=== PATIENT | female | born 1940 | race Caucasian/White ===

== ENCOUNTER 2020-03-20 12:42 | Emergency (ER) | payer OTHER ==
[~2020-03-20] VITALS: Ht 149.9 cm; Wt 55.8 kg
[2020-03-20 12:52] VITALS: BP_SYST 146
--- NOTE | 2020-03-20 12:58 | NUR ---
Patient to ER bed 06 to gown for evaluation. Side rails up.
--- NOTE | 2020-03-20 13:00 | NUR ---
Patient arrived in the ED c/o right flank pain for the last 3 days. Denied any chest pain or shortness of breath. Denied any fevers, chills, nausea or vomiting. Patient is alert and oriented x4, respirations even and unlabored, speaking in full sentences, and ambulating with a steady gait. VSS, pain level 7/10. Informed of the approximate wait time. Instructed to notify ED staff for any changes in condition or worsening of symptoms while waiting to be seen by an ED provider. Patient verbalized understanding.
--- NOTE | 2020-03-20 13:02 | NUR ---
ER Dr. Lisa at bedside examining patient.
--- NOTE | 2020-03-20 13:12 | NUR ---
# 18 gauge angiocath placed to RAC. Use of asceptic technique. Opsite placed over site. Blood return noted. Blood for lab drawn from site. Flushed with 10 cc of normal saline. No evidence of infiltration noted. Patient tolerated well.
--- NOTE | 2020-03-20 13:20 | NUR ---
Administered Toradol IVP, Rocephin IVPB as ordered by Dr. Lisa. Patient tolerated the medications well. See eMAR for details.
[2020-03-20 13:21] LABS: BILIRUBIN,URINE NEGATIVE (NEGATIVE); CLARITY/URINE CLEAR (CLEAR); COLOR,URINE YELLOW (YELLOW); GLUCOSE,URINE NEGATIVE (NEGATIVE); KETONES,URINE NEGATIVE (NEGATIVE); LEUKOCYTE ESTERASE ,URINE NEGATIVE (NEGATIVE); NITRITE, URINE NEGATIVE (NEGATIVE); PH,URINE 6.5 (5.0-8.0); PROTEIN URINE NEGATIVE (NEGATIVE); UROBILINOGEN,URINE 0.2 (0.2-1.0)
[2020-03-20 13:24] LABS: BLOOD, URINE TRACE (NEGATIVE)
[2020-03-20] MEDS: cefTRIAXone 1 GM IVPB PREMIX 50 ML IV ONE (13:33)
[2020-03-20] MEDS: NACL 0.9% 1,000 ML IV ONE (13:34)
[2020-03-20] MEDS: KETOROLAC TROMETHAMINE 30 MG VIAL IVP ONE (13:35)
[2020-03-20 13:36] LABS: BACTERIA,URINE None Seen /HPF (None Seen); RBC,URINE 0-3 /HPF (0-3); WBC,URINE NONE SEEN /HPF (0-3); YEAST,URINE None Seen /HPF (None Seen)
[2020-03-20 14:51] VITALS: BP_SYST 126
--- NOTE | 2020-03-20 14:52 | NUR ---
Patient given written and verbal discharge instructions and verbalizes understanding. ER MD discussed with patient the results and treatment provided. Patient in stable condition. ID arm band removed. IV catheter removed intact and dressing applied, no active bleeding. Rx of Pyridium and Macrobid given. Patient educated on pain management and to follow up with PMD. Pain Scale 0/10. Opportunity for questions provided and answered. Medication side effect fact sheet provided.
== END 2020-03-20 14:52 | disposition home or self-care (01) ==
LOC: SED 12:42
DX: N39.0 Urinary tract infection, site not specified (principal)
CPT/HCPCS: 36415; 81000; 87040; 96365; 96375; 99284; J0696; J1885

== ENCOUNTER 2020-03-22 06:04 | Emergency (ER) | payer OTHER ==
[~2020-03-22] VITALS: Ht 149.9 cm; Wt 54.4 kg
[2020-03-22 06:10] VITALS: BP_SYST 116
[2020-03-22] MEDS ORDERED: NACL 0.9% 1,000 ML IV ONE (06:23)
[2020-03-22 06:54] LABS: BASOPHILS # (AUTO) 0.1 K/uL (0.0-0.2); BASOPHILS % (AUTO) 0.4 % (0.0-2.0); EOSINOPHILS # (AUTO) 0.8 K/uL (0.0-0.4); EOSINOPHILS % (AUTO) 6.5 % (0.0-4.0); HEMATOCRIT 39.8 % (36-48); HEMOGLOBIN 13.3 g/dL (12.0-16.0); LYMPHOCYTES # (AUTO) 0.6 K/uL (1.0-5.5); LYMPHOCYTES % (AUTO) 4.7 % (20.5-51.5); MEAN CORPUSCULAR HEMOGLOBIN 32 pg (27-31); MEAN CORPUSCULAR HGB CONC 34 % (32-36); MEAN CORPUSCULAR VOLUME 96 fL (79.0-98.0); MONOCYTES # (AUTO) 0.6 K/uL (0.0-1.0); MONOCYTES % (AUTO) 5.2 % (1.7-9.3); NEUTROPHILS # (AUTO) 10.4 K/uL (1.8-7.7); NEUTROPHILS % (AUTO) 83.2 % (40.0-70.0); PLATELET COUNT (AUTO) 320 K/uL (130-430); RED BLOOD CELL COUNT(AUTO) 4.13 MIL/uL (4.2-6.2); RED CELL DISTRIBUTION WIDTH 13.1 % (9.0-15.0); WHITE BLOOD COUNT (AUTO) 12.4 K/uL (4.8-10.8)
[2020-03-22 07:08] LABS: CALCIUM 9.3 mg/dL (8.4-11.0); CHLORIDE 98 mmol/L (98-107); CREATININE 1.17 mg/dL (0.55-1.30); GLUCOSE 103 mg/dL (70-99); POTASSIUM 3.7 mmol/L (3.5-5.1); UREA NITROGEN, BLOOD 11 mg/dL (8-21)
[2020-03-22 07:14] LABS: ALANINE AMINOTRANSFERASE 17 U/L (12-78); AMYLASE 82 U/L (0-100); ASPARTATE AMINOTRANSFERASE 17 U/L (10-37); LIPASE 69 U/L (73-393); TOTAL BILIRUBIN 0.6 mg/dL (0.0-1.0)
[2020-03-22 07:18] LABS: PROTHROMBIN TIME 9.7 SECS (9.5-12.5)
[2020-03-22 07:23] LABS: ANION GAP 14 (5-15); SODIUM SERUM 137 mmol/L (136-145)
[2020-03-22] MEDS ORDERED: MORPHINE 4 MG/ML INJ. SYRINGE IVP ONE (08:45)
[2020-03-22 08:52] LABS: BILIRUBIN,URINE NEGATIVE (NEGATIVE); CLARITY/URINE CLEAR (CLEAR); COLOR,URINE YELLOW (YELLOW); GLUCOSE,URINE NEGATIVE (NEGATIVE); KETONES,URINE TRACE (NEGATIVE); LEUKOCYTE ESTERASE ,URINE NEGATIVE (NEGATIVE); NITRITE, URINE POSITIVE (NEGATIVE); PROTEIN URINE NEGATIVE (NEGATIVE); UROBILINOGEN,URINE 0.2 (0.2-1.0)
[2020-03-22 09:03] LABS: BLOOD, URINE TRACE (NEGATIVE)
[2020-03-22 09:15] LABS: BACTERIA,URINE FEW /HPF (None Seen); MUCUS,URINE 1+ /LPF (None Seen); RBC,URINE 0-3 /HPF (0-3); WBC,URINE 0-3 /HPF (0-3)
[2020-03-22] MEDS ORDERED: cefTRIAXone 1 GM IVPB PREMIX 50 ML IV ONE (09:30)
[2020-03-22] MEDS ORDERED: LACTULOSE 20 GM/30 ML UDC PO ONE (10:30)
[2020-03-22 12:52] VITALS: BP_SYST 113
== END 2020-03-22 10:40 | disposition home or self-care (01) ==
LOC: SED 06:04
DX: N39.0 Urinary tract infection, site not specified (principal); K59.00 Constipation, unspecified
CPT/HCPCS: 36415; 74176; 80053; 81000; 82150; 83605; 83690; 84484; 85025; 85610; 87040; 87086; 93005; 96361; 96365; 96375; 99285; J0696; J2270; J7030

== ENCOUNTER 2021-07-05 14:38 | Inpatient (IN) | payer OTHER, SELFPAY ==
[~2021-07-05] VITALS: Ht 149.9 cm; Wt 56.7 kg
[~2021-07-05 14:38] MED LIST: AMLO10TA88 PO; AMOX-426 PO; LEVO75CA5 PO; LIP20 PO; LISI40TA13 PO
[2021-07-05 15:17] VITALS: BP_SYST 145
[2021-07-05 15:38] LABS: BASOPHILS # (AUTO) 0.1 K/uL (0.0-0.2); BASOPHILS % (AUTO) 0.4 % (0.0-2.0); EOSINOPHILS # (AUTO) 0.4 K/uL (0.0-0.4); EOSINOPHILS % (AUTO) 2.1 % (0.0-4.0); HEMATOCRIT 35.9 % (36-48); HEMOGLOBIN 12.2 g/dL (12.0-16.0); LYMPHOCYTES # (AUTO) 2.4 K/uL (1.0-5.5); LYMPHOCYTES % (AUTO) 13.7 % (20.5-51.5); MEAN CORPUSCULAR HEMOGLOBIN 32 pg (27-31); MEAN CORPUSCULAR HGB CONC 34 % (32-36); MEAN CORPUSCULAR VOLUME 94 fL (79.0-98.0); MONOCYTES # (AUTO) 1.1 K/uL (0.0-1.0); MONOCYTES % (AUTO) 6.1 % (1.7-9.3); NEUTROPHILS # (AUTO) 13.8 K/uL (1.8-7.7); NEUTROPHILS % (AUTO) 77.7 % (40.0-70.0); PLATELET COUNT (AUTO) 340 K/uL (130-430); RED BLOOD CELL COUNT(AUTO) 3.82 MIL/uL (4.2-6.2); WHITE BLOOD COUNT (AUTO) 17.7 K/uL (4.8-10.8)
[2021-07-05 15:55] LABS: ANION GAP 7 (5-15); CALCIUM 9.5 mg/dL (8.4-11.0); CHLORIDE 102 mmol/L (98-107); CREATININE 0.97 mg/dL (0.55-1.30); GLUCOSE 89 mg/dL (70-99); POTASSIUM 4.6 mmol/L (3.5-5.1); SODIUM SERUM 135 mmol/L (136-145); UREA NITROGEN, BLOOD 17 mg/dL (8-21)
[2021-07-05 16:04] LABS: INR 0.9 (0.8-1.2); PROTHROMBIN TIME 9.8 SECS (9.5-12.5)
[2021-07-05 16:10] LABS: ALANINE AMINOTRANSFERASE 25 U/L (12-78); ALBUMIN 3.9 g/dL (3.4-4.8); AMYLASE 78 U/L (0-100); ASPARTATE AMINOTRANSFERASE 21 U/L (10-37); LIPASE 79 U/L (73-393); TOTAL BILIRUBIN 0.3 mg/dL (0.0-1.0)
[2021-07-05] MEDS ORDERED: cefTRIAXone 1 GM IVPB PREMIX 50 ML IV ONE (16:45)
[2021-07-05 16:46] LABS: BILIRUBIN,URINE NEGATIVE (NEGATIVE); COLOR,URINE YELLOW (YELLOW); GLUCOSE,URINE NEGATIVE (NEGATIVE); KETONES,URINE NEGATIVE (NEGATIVE); LEUKOCYTE ESTERASE ,URINE 1+ (NEGATIVE); NITRITE, URINE POSITIVE (NEGATIVE); PH,URINE 5.5 (5.0-8.0); PROTEIN URINE NEGATIVE (NEGATIVE); UROBILINOGEN,URINE 0.2 (0.2-1.0)
[2021-07-05 16:47] LABS: C-REACTIVE PROTEIN QUANT 14.2 mg/dL (0-0.5)
[2021-07-05 16:50] LABS: BLOOD, URINE TRACE (NEGATIVE); CLARITY/URINE HAZY (CLEAR)
[2021-07-05 17:03] LABS: BACTERIA,URINE MANY /HPF (None Seen); MUCUS,URINE 2+ /LPF (None Seen)
[2021-07-05 18:25] VITALS: BP_SYST 143
[2021-07-05] MEDS ORDERED: CLINDAMYCIN 600 MG in D5W 50 ML IV ONE (18:30)
[2021-07-05 20:00] VITALS: BP_SYST 139
[2021-07-05 20:55] VITALS: BP_SYST 139
[2021-07-05] MEDS: D5/0.45 NS 1,000 ML IV SCH (21:48)
[2021-07-06] MEDS ORDERED: guaiFENesin/DEXTROMETHORPHAN 10 ML UDC PO PRN
[2021-07-06] MEDS ORDERED: ACETAMINOPHEN 500 MG TABLET PO PRN
[2021-07-06] MEDS ORDERED: HYDROcodone/ACETAMIN 7.5-325 MG TAB PO PRN
[2021-07-06] MEDS ORDERED: ONDANSETRON HCL 4 MG/2 ML VIAL IVP PRN
[2021-07-06] MEDS ORDERED: ZOLPIDEM TARTRATE 5 MG TABLET PO PRN
[2021-07-06] MEDS ORDERED: DOCUSATE SODIUM 100 MG/10 ML UDC PO PRN
[2021-07-06 00:05] VITALS: BP_SYST 122
[2021-07-06 01:00] LABS: BARBITURATE, URINE NEGATIVE (NEG <=200); BENZODIAZEPINE, URINE NEGATIVE (NEG <=150); CANNABINOID, URINE NEGATIVE (NEG <=50); COCAINE, URINE NEGATIVE (NEG <=150); METHAMPHETAMINES SCREEN,URINE NEGATIVE (NEG <=500); OPIATE, URINE NEGATIVE (NEG <=100); PHENCYCLIDINE SCREEN,URINE NEGATIVE (NEG <=25); UR TRICYCLIC ANTIDEPRESSANTS NEGATIVE (NEG <=300); URINE AMPHETAMINE NEGATIVE (NEG <=500); URINE METHADONE NEGATIVE (NEG <=200); URINE OXYCODONE SCREEN NEGATIVE (NEG <=100); URINE PROPOXYPHENE SCREEN NEGATIVE (NEG <=300)
[2021-07-06 07:00] LABS: BASOPHILS # (AUTO) 0.1 K/uL (0.0-0.2); BASOPHILS % (AUTO) 0.4 % (0.0-2.0); EOSINOPHILS # (AUTO) 0.4 K/uL (0.0-0.4); EOSINOPHILS % (AUTO) 3.1 % (0.0-4.0); HEMATOCRIT 32.1 % (36-48); HEMOGLOBIN 10.9 g/dL (12.0-16.0); LYMPHOCYTES # (AUTO) 2.6 K/uL (1.0-5.5); LYMPHOCYTES % (AUTO) 18.7 % (20.5-51.5); MEAN CORPUSCULAR HEMOGLOBIN 32 pg (27-31); MEAN CORPUSCULAR HGB CONC 34 % (32-36); MEAN CORPUSCULAR VOLUME 93 fL (79.0-98.0); MONOCYTES % (AUTO) 7.4 % (1.7-9.3); NEUTROPHILS # (AUTO) 9.9 K/uL (1.8-7.7); NEUTROPHILS % (AUTO) 70.4 % (40.0-70.0); PLATELET COUNT (AUTO) 304 K/uL (130-430); RED BLOOD CELL COUNT(AUTO) 3.45 MIL/uL (4.2-6.2); RED CELL DISTRIBUTION WIDTH 12.7 % (9.0-15.0)
[2021-07-06 07:59] LABS: ANION GAP 7 (5-15); CHLORIDE 103 mmol/L (98-107); CREATININE 0.94 mg/dL (0.55-1.30); FREE T4 (FREE THYROXINE) 1.5 ng/dl (0.8-1.5); GLUCOSE 85 mg/dL (70-99); PHOSPHORUS 3.7 mg/dL (2.7-4.5); SODIUM SERUM 136 mmol/L (136-145); THYROID STIMULATING HORMONE 0.07 uIu/mL (0.36-3.74); UREA NITROGEN, BLOOD 13 mg/dL (8-21)
[2021-07-06 08:00] VITALS: BP_SYST 122
[2021-07-06] MEDS ORDERED: POTASSIUM CHLORIDE 20 MEQ TAB.PRT.SR PO PRN (09:00)
[2021-07-06] MEDS: PANTOPRAZOLE SODIUM 40 MG TAB PO SCH (09:01)
[2021-07-06 09:08] LABS: CHOLESTEROL 131 mg/dL (<200); HDL CHOLESTEROL 64 mg/dL (>55); LDL CHOLESTEROL 55 mg/dL (<100); TRIGLYCERIDES 98 mg/dL (30-150)
[2021-07-06] MEDS ORDERED: amLODIPine BESYLATE 10 MG TABLET PO ONE (09:45)
[2021-07-06 11:23] VITALS: BP_SYST 118
[2021-07-06 17:14] VITALS: BP_SYST 121
[2021-07-06] MEDS: cefTRIAXone 1 GM IVPB PREMIX 50 ML IV SCH (17:15)
[2021-07-06 20:00] VITALS: BP_SYST 127
[2021-07-06] MEDS ORDERED: SIMETHICONE 80 MG TAB.CHEW PO PRN (20:30)
[2021-07-06] MEDS: ATORVASTATIN 20 MG TABLET PO SCH (21:14)
[2021-07-06] MEDS: lisinopriL 20 MG TABLET PO SCH (21:15)
[2021-07-06] MEDS: D5/0.45 NS 1,000 ML IV SCH (21:15)
[2021-07-06] MEDS: metroNIDAZOLE 500 MG TABLET PO SCH (21:24)
[2021-07-07 00:31] VITALS: BP_SYST 135
[2021-07-07] MEDS: LEVOTHYROXINE SODIUM 0.05 MG TABLET PO SCH (06:39)
[2021-07-07] MEDS: metroNIDAZOLE 500 MG TABLET PO SCH ×3 (06:39→22:29)
[2021-07-07 08:25] VITALS: BP_SYST 118
[2021-07-07] MEDS: lisinopriL 20 MG TABLET PO SCH ×2 (08:38→20:17)
[2021-07-07] MEDS: PANTOPRAZOLE SODIUM 40 MG TAB PO SCH (08:39)
[2021-07-07] MEDS ORDERED: amLODIPine BESYLATE 10 MG TABLET PO SCH (09:00)
[2021-07-07 09:06] LABS: BASOPHILS # (AUTO) 0.1 K/uL (0.0-0.2); BASOPHILS % (AUTO) 0.7 % (0.0-2.0); EOSINOPHILS # (AUTO) 0.4 K/uL (0.0-0.4); EOSINOPHILS % (AUTO) 3.2 % (0.0-4.0); HEMATOCRIT 32.4 % (36-48); HEMOGLOBIN 10.9 g/dL (12.0-16.0); LYMPHOCYTES # (AUTO) 1.7 K/uL (1.0-5.5); LYMPHOCYTES % (AUTO) 13.4 % (20.5-51.5); MEAN CORPUSCULAR HEMOGLOBIN 32 pg (27-31); MEAN CORPUSCULAR HGB CONC 34 % (32-36); MEAN CORPUSCULAR VOLUME 94 fL (79.0-98.0); MONOCYTES # (AUTO) 0.9 K/uL (0.0-1.0); MONOCYTES % (AUTO) 6.7 % (1.7-9.3); NEUTROPHILS # (AUTO) 9.9 K/uL (1.8-7.7); PLATELET COUNT (AUTO) 298 K/uL (130-430); RED BLOOD CELL COUNT(AUTO) 3.45 MIL/uL (4.2-6.2); RED CELL DISTRIBUTION WIDTH 12.8 % (9.0-15.0)
[2021-07-07 09:21] LABS: ANION GAP 9 (5-15); CALCIUM 8.3 mg/dL (8.4-11.0); CHLORIDE 106 mmol/L (98-107); CREATININE 0.99 mg/dL (0.55-1.30); GLUCOSE 154 mg/dL (70-99); POTASSIUM 3.4 mmol/L (3.5-5.1); SODIUM SERUM 139 mmol/L (136-145); UREA NITROGEN, BLOOD 8 mg/dL (8-21)
[2021-07-07 12:00] VITALS: BP_SYST 114
[2021-07-07] MEDS: D5/0.45 NS 1,000 ML IV SCH (15:38)
[2021-07-07] MEDS: cefTRIAXone 1 GM IVPB PREMIX 50 ML IV SCH (15:39)
[2021-07-07 16:12] VITALS: BP_SYST 114
[2021-07-07 20:00] VITALS: BP_SYST 118
[2021-07-07] MEDS: ATORVASTATIN 20 MG TABLET PO SCH (20:17)
[2021-07-07] MEDS ORDERED: ERTAPENEM SODIUM 1 GM in NS 50 ML IV SCH (21:00)
[2021-07-08] VITALS: BP_SYST 120
[2021-07-08 04:00] VITALS: BP_SYST 126
[2021-07-08] MEDS: metroNIDAZOLE 500 MG TABLET PO SCH (06:09)
[2021-07-08] MEDS: LEVOTHYROXINE SODIUM 0.05 MG TABLET PO SCH (06:10)
[2021-07-08 06:34] LABS: BASOPHILS # (AUTO) 0.1 K/uL (0.0-0.2); BASOPHILS % (AUTO) 0.7 % (0.0-2.0); EOSINOPHILS # (AUTO) 0.5 K/uL (0.0-0.4); EOSINOPHILS % (AUTO) 4.3 % (0.0-4.0); HEMATOCRIT 32.9 % (36-48); LYMPHOCYTES # (AUTO) 2.3 K/uL (1.0-5.5); MEAN CORPUSCULAR HEMOGLOBIN 31 pg (27-31); MEAN CORPUSCULAR HGB CONC 33 % (32-36); MEAN CORPUSCULAR VOLUME 93 fL (79.0-98.0); MONOCYTES # (AUTO) 0.9 K/uL (0.0-1.0); MONOCYTES % (AUTO) 7.4 % (1.7-9.3); NEUTROPHILS # (AUTO) 7.9 K/uL (1.8-7.7); NEUTROPHILS % (AUTO) 67.6 % (40.0-70.0); PLATELET COUNT (AUTO) 323 K/uL (130-430); RED BLOOD CELL COUNT(AUTO) 3.52 MIL/uL (4.2-6.2); RED CELL DISTRIBUTION WIDTH 12.8 % (9.0-15.0); WHITE BLOOD COUNT (AUTO) 11.7 K/uL (4.8-10.8)
[2021-07-08 07:06] LABS: ANION GAP 8 (5-15); CHLORIDE 107 mmol/L (98-107); CREATININE 1.19 mg/dL (0.55-1.30); GLUCOSE 93 mg/dL (70-99); POTASSIUM 3.8 mmol/L (3.5-5.1); SODIUM SERUM 141 mmol/L (136-145); UREA NITROGEN, BLOOD 15 mg/dL (8-21)
[2021-07-08] MEDS ORDERED: LEVO500T89 PO (10:00)
[2021-07-08 10:27] VITALS: BP_SYST 136
[2021-07-08 10:58] VITALS: BP_SYST 136
== END 2021-07-08 11:10 | disposition home or self-care (01) | DRG 872 ==
LOC: SED 14:38 → STU 17:34
PROVIDERS: ADMIT Family Medicine; ATTEND Internal Medicine Hospice and Palliative Medicine
DX: A41.9 Sepsis, unspecified organism (principal); N39.0 Urinary tract infection, site not specified; E03.9 Hypothyroidism, unspecified; E78.5 Hyperlipidemia, unspecified; K21.9 Gastro-esophageal reflux disease without esophagitis; B96.20 Unspecified Escherichia coli [E. coli] as the cause of diseases classified elsewhere; F17.210 Nicotine dependence, cigarettes, uncomplicated; I10 Essential (primary) hypertension; Z20.822 Contact with and (suspected) exposure to COVID-19; Z79.899 Other long term (current) drug therapy
CPT/HCPCS: 36415; 71045; 76376; 80048; 80053; 80061; 80307; 81000; 82150; 83036; 83605; 83690; 83735; 83880; 84100; 84439; 84443; 84484; 85025; 85610-TC; 85730-TC; 86140; 86710; 87040-TC; 87086; 93005; 96365; 99285; G0378; J0696; J1335; J3490; J7060

== ENCOUNTER 2021-08-04 09:48 | Observation (INO) | payer OTHER, SELFPAY ==
[~2021-08-04] VITALS: Ht 147.3 cm; Wt 56.7 kg
[2021-08-04 09:48] VITALS: BP_SYST 132
[~2021-08-04 09:48] MED LIST changes: -AMOX-426 PO; +LEVO500T89 PO
--- NOTE | 2021-08-04 09:48 | NUR ---
Dr. Chairez at bedside to assess.
--- NOTE | 2021-08-04 09:48 | NUR ---
Pt to bed 1 for evaluation.
--- NOTE | 2021-08-04 09:49 | NUR ---
Pt AAO and was BIB wheelchair for poor balance and lack of coordination today. Last well time 2230 last night. Pt reports difficulty swallowing and having a hard time balancing when she stands. Pt NIH on arrival is zero and pt denies taking any blood thinners. Pt has history of HTN, high cholesterol, and thyroid issues. Pt was also recently diagnosed with afib. Pt denies pain currently.
--- NOTE | 2021-08-04 09:50 | NUR ---
BS (97) reported to
--- NOTE | 2021-08-04 09:53 | NUR ---
EKG done with results given to Dr. Chairez for interpretation.
--- NOTE | 2021-08-04 10:05 | NUR ---
# 20 gauge angiocath placed to right wrist. Use of asceptic technique. Opsite placed over site. Blood return noted. Blood for lab drawn from site. Flushed with 10 cc of normal saline. No evidence of infiltration noted. Patient tolerated well.
--- NOTE | 2021-08-04 10:12 | NUR ---
Portable CXR done at bedside.
--- NOTE | 2021-08-04 10:17 | NUR ---
Pt to CT scan by yareli.
--- NOTE | 2021-08-04 10:27 | NUR ---
patient back from CT scan.
[2021-08-04] MEDS ORDERED: IOHEXOL 350 mgI/mL, 150 ML INFUS..BTL IV ONE (10:33)
[2021-08-04 10:35] LABS: BASOPHILS # (AUTO) 0.1 K/uL (0.0-0.2); BASOPHILS % (AUTO) 1.1 % (0.0-2.0); EOSINOPHILS # (AUTO) 0.5 K/uL (0.0-0.4); EOSINOPHILS % (AUTO) 5.5 % (0.0-4.0); HEMATOCRIT 37.3 % (36-48); HEMOGLOBIN 12.5 g/dL (12.0-16.0); LYMPHOCYTES # (AUTO) 3.1 K/uL (1.0-5.5); LYMPHOCYTES % (AUTO) 32.9 % (20.5-51.5); MEAN CORPUSCULAR HEMOGLOBIN 32 pg (27-31); MEAN CORPUSCULAR HGB CONC 34 % (32-36); MEAN CORPUSCULAR VOLUME 94 fL (79.0-98.0); MONOCYTES # (AUTO) 0.6 K/uL (0.0-1.0); MONOCYTES % (AUTO) 6.8 % (1.7-9.3); NEUTROPHILS # (AUTO) 5.1 K/uL (1.8-7.7); NEUTROPHILS % (AUTO) 53.7 % (40.0-70.0); PLATELET COUNT (AUTO) 345 K/uL (130-430); RED BLOOD CELL COUNT(AUTO) 3.96 MIL/uL (4.2-6.2); RED CELL DISTRIBUTION WIDTH 13.5 % (9.0-15.0); WHITE BLOOD COUNT (AUTO) 9.6 K/uL (4.8-10.8)
[2021-08-04 10:36] LABS: ANION GAP 12 (5-15); CALCIUM 8.9 mg/dL (8.4-11.0); CHLORIDE 102 mmol/L (98-107); CREATININE 1.06 mg/dL (0.55-1.30); GLUCOSE 94 mg/dL (70-99); POTASSIUM 3.8 mmol/L (3.5-5.1); SODIUM SERUM 139 mmol/L (136-145); UREA NITROGEN, BLOOD 11 mg/dL (8-21)
[2021-08-04 10:50] LABS: ALANINE AMINOTRANSFERASE 23 U/L (12-78); ASPARTATE AMINOTRANSFERASE 21 U/L (10-37); THYROID STIMULATING HORMONE 0.29 uIu/mL (0.36-3.74); TOTAL BILIRUBIN 0.4 mg/dL (0.0-1.0)
[2021-08-04 11:02] LABS: BILIRUBIN,URINE NEGATIVE (NEGATIVE); BLOOD, URINE NEGATIVE (NEGATIVE); CLARITY/URINE CLEAR (CLEAR); COLOR,URINE YELLOW (YELLOW); GLUCOSE,URINE NEGATIVE (NEGATIVE); KETONES,URINE NEGATIVE (NEGATIVE); LEUKOCYTE ESTERASE ,URINE NEGATIVE (NEGATIVE); NITRITE, URINE NEGATIVE (NEGATIVE); PROTEIN URINE NEGATIVE (NEGATIVE); UROBILINOGEN,URINE 0.2 (0.2-1.0)
[2021-08-04 11:18] LABS: BARBITURATE, URINE NEGATIVE (NEG <=200); BENZODIAZEPINE, URINE NEGATIVE (NEG <=150); CANNABINOID, URINE NEGATIVE (NEG <=50); COCAINE, URINE NEGATIVE (NEG <=150); METHAMPHETAMINES SCREEN,URINE NEGATIVE (NEG <=500); OPIATE, URINE NEGATIVE (NEG <=100); PHENCYCLIDINE SCREEN,URINE NEGATIVE (NEG <=25); UR TRICYCLIC ANTIDEPRESSANTS NEGATIVE (NEG <=300); URINE AMPHETAMINE NEGATIVE (NEG <=500); URINE METHADONE NEGATIVE (NEG <=200); URINE OXYCODONE SCREEN NEGATIVE (NEG <=100); URINE PROPOXYPHENE SCREEN NEGATIVE (NEG <=300)
[2021-08-04] MEDS ORDERED: ASPIRIN 325 MG TABLET PO ONE (12:00)
--- NOTE | 2021-08-04 12:05 | NUR ---
Admit orders received from Dr. Reid. Pt to be admitted to Tele for Probable CVA and Afib.
--- NOTE | 2021-08-04 12:13 | NUR ---
Covid swab done and sent to lab.
[2021-08-04] MEDS ORDERED: *LOVENOX 1MG/KG Q12H/PHARMACY XX ONE (12:15)
--- NOTE | 2021-08-04 12:15 | NUR ---
Swallow eval completed, Pt passed. Will order low salt diet.
--- NOTE | 2021-08-04 12:50 | NUR ---
MRI OF THE BRAIN DONE.
--- NOTE | 2021-08-04 13:23 | NUR ---
ASSISTED PATIENT TO THE RESTROOM WITH MINIMAL ASSISTANCE NEEDED.
[2021-08-04] MEDS ORDERED: ASPI-1393 PO (13:37)
--- NOTE | 2021-08-04 14:00 | NUR ---
Patient will be admitted to care of Dr. Reid. Admitted to telemetry unit. Will go to room 113B.Belongings list completed. Complete and up to date summary report printed. bedside report to be given to zafar ALBERT at bedside with opportunity for questions.
--- NOTE | 2021-08-04 14:00 | NUR ---
Jas raymondmarko in [facility] - 08/04/21 at 1551 by ANGELES TE
--- NOTE | 2021-08-04 14:00 | NUR ---
Transfer to TELE via ACLS protocol. Licensed nurse present. IV present no signs or symptoms of infiltration.
[2021-08-04 14:25] VITALS: BP_SYST 130
[2021-08-04 16:00] VITALS: BP_SYST 123
[2021-08-04 16:35] LABS: PROTHROMBIN TIME 10.2 SECS (9.5-12.5)
[2021-08-04] MEDS: ENOXAPARIN SODIUM 40 MG/0.4 ML SYRINGE SUBCUT SCH (18:54)
--- NOTE | 2021-08-04 19:30 | NUR ---
at bedside Dr. Ricardo at bedside.
--- NOTE | 2021-08-04 19:40 | NUR ---
Opening notes Pt AAOx4, VSS, no s/s distress noted. Pt denies sob or dizziness. No neurodeficits noted, pt able to move all extremities equally. Encouraged pt to call for assistance to bathroom, pt verbalized understanding. Call light within reach. Bed low, locked, siderails up x2. To monitor.
[2021-08-04 20:00] VITALS: BP_SYST 110
[2021-08-04] MEDS: lisinopriL 20 MG TABLET PO SCH (20:32)
[2021-08-04] MEDS ORDERED: ATORVASTATIN 20 MG TABLET PO SCH (21:00)
--- NOTE | 2021-08-04 21:30 | NUR ---
Ambulated to bathroom Pt ambulated to bathroom with steady gait, pt denies sob or dizziness. Pt voided.
--- NOTE | 2021-08-04 21:54 | NUR ---
MRSA nares collected and sent to lab per protocol.
[2021-08-05 00:15] VITALS: BP_SYST 116
--- NOTE | 2021-08-05 00:15 | NUR ---
Rounds Pt asleep, easily awakens. No s/s distress noted. No c/o discomfort. Call light within reach. Bed low, locked, siderails up x2. To monitor.
[2021-08-05] MEDS: ENOXAPARIN SODIUM 40 MG/0.4 ML SYRINGE SUBCUT SCH (06:19)
--- NOTE | 2021-08-05 06:23 | NUR ---
Closing notes Pt awake, resting in bed, no s/s distress noted. IV R. wrist 20G clear and patent. No c/o discomfort. Call light within reach. Bed low, locked, siderails up x2. To endorse to AM nurse.
[2021-08-05] MEDS ORDERED: LEVOTHYROXINE SODIUM 0.075 MG TABLET PO ONE (08:30)
[2021-08-05] MEDS: lisinopriL 20 MG TABLET PO SCH (08:42)
--- NOTE | 2021-08-05 08:43 | NUR ---
Patient stable with Dr. Watson Mcclendon at bedside. Scheduled medications given per order.
[2021-08-05 08:44] VITALS: BP_SYST 117
[2021-08-05] MEDS ORDERED: ASPIRIN 81 MG TABLET(ECOTRIN) PO SCH (09:00)
[2021-08-05] MEDS ORDERED: amLODIPine BESYLATE 10 MG TABLET PO SCH (09:00)
[2021-08-05 10:45] VITALS: BP_SYST 117
--- NOTE | 2021-08-05 11:45 | NUR ---
Discharge instructions / discharge Both written and verbal discharge instructions given to patient and daughter. Medication reconciliation form given as well. Encouraged to follow up with Primary Care Physician in 1 week. Exit Care provided. Patient verbalized understanding. MD previously discussed with patient the results and treatment provided. Ambulatory with steady gait for discharge to home. Patient in stable condition. ID band removed. Peripheral IV catheter removed intact with no active bleeding; pressure dressing applied to site. All belongings sent with patient. Patient discharged to home; accompanied by daughter.
[2021-08-06] MEDS ORDERED: LEVOTHYROXINE SODIUM 0.075 MG TABLET PO SCH (07:00)
== END 2021-08-05 11:45 | disposition home or self-care (01) ==
LOC: SED 09:48 → STU 12:08 → INTOOBSV 12:08 → STU 14:00
PROVIDERS: ADMIT Internal Medicine Hospice and Palliative Medicine; ATTEND Internal Medicine Hospice and Palliative Medicine
DX: G45.0 Vertebro-basilar artery syndrome (principal); Z20.822 Contact with and (suspected) exposure to COVID-19; I63.9 Cerebral infarction, unspecified; R42 Dizziness and giddiness; R26.0 Ataxic gait; I10 Essential (primary) hypertension; E78.5 Hyperlipidemia, unspecified; R13.10 Dysphagia, unspecified; E03.9 Hypothyroidism, unspecified; Z79.899 Other long term (current) drug therapy; Z90.710 Acquired absence of both cervix and uterus; Z87.891 Personal history of nicotine dependence; Z96.649 Presence of unspecified artificial hip joint; Z79.890 Hormone replacement therapy; Z79.82 Long term (current) use of aspirin
CPT/HCPCS: 36415; 70450; 70496; 70498; 70551; 71045; 76376; 80048; 80053; 80307; 81003; 84443; 84484; 85025; 85610; 85730; 87081; 87426; 93005; 93306; 96372 ×2; 97162; 99291; G0378; J1650 ×2; Q9967

== ENCOUNTER 2022-01-02 11:22 | Emergency (ER) | payer OTHER ==
[~2022-01-02] VITALS: Ht 149.9 cm; Wt 56.7 kg
[~2022-01-02 11:22] MED LIST changes: +ASPI-1393 PO; -LEVO500T89 PO
[2022-01-02 11:33] VITALS: BP_SYST 151
[2022-01-02] MEDS ORDERED: traMADol HCL HCL 50 MG TABLET (ULTRAM) PO ONE (14:15)
[2022-01-02 16:21] LABS: BASOPHILS # (AUTO) 0.1 K/uL (0.0-0.2); BASOPHILS % (AUTO) 0.5 % (0.0-2.0); EOSINOPHILS # (AUTO) 0.5 K/uL (0.0-0.4); EOSINOPHILS % (AUTO) 3.9 % (0.0-4.0); HEMATOCRIT 38.3 % (36-48); LYMPHOCYTES # (AUTO) 2.9 K/uL (1.0-5.5); LYMPHOCYTES % (AUTO) 24.5 % (20.5-51.5); MEAN CORPUSCULAR HEMOGLOBIN 32 pg (27-31); MEAN CORPUSCULAR HGB CONC 34 % (32-36); MEAN CORPUSCULAR VOLUME 93 fL (79.0-98.0); MONOCYTES # (AUTO) 0.8 K/uL (0.0-1.0); MONOCYTES % (AUTO) 6.3 % (1.7-9.3); NEUTROPHILS # (AUTO) 7.7 K/uL (1.8-7.7); NEUTROPHILS % (AUTO) 64.8 % (40.0-70.0); PLATELET COUNT (AUTO) 386 K/uL (130-430); RED BLOOD CELL COUNT(AUTO) 4.12 MIL/uL (4.2-6.2); RED CELL DISTRIBUTION WIDTH 13.1 % (9.0-15.0); WHITE BLOOD COUNT (AUTO) 11.9 K/uL (4.8-10.8)
[2022-01-02 16:33] LABS: ANION GAP 12 (5-15); CALCIUM 8.9 mg/dL (8.4-11.0); CHLORIDE 102 mmol/L (98-107); CREATININE 1.07 mg/dL (0.55-1.30); GLUCOSE 102 mg/dL (70-99); POTASSIUM 4.1 mmol/L (3.5-5.1); SODIUM SERUM 135 mmol/L (136-145); UREA NITROGEN, BLOOD 17 mg/dL (8-21)
[2022-01-02 16:48] LABS: ALANINE AMINOTRANSFERASE 20 U/L (12-78); ALBUMIN 4.1 g/dL (3.4-4.8); ASPARTATE AMINOTRANSFERASE 22 U/L (10-37); TOTAL BILIRUBIN 0.4 mg/dL (0.0-1.0)
[2022-01-02 16:54] LABS: BILIRUBIN,URINE NEGATIVE (NEGATIVE); BLOOD, URINE NEGATIVE (NEGATIVE); GLUCOSE,URINE NEGATIVE (NEGATIVE); KETONES,URINE NEGATIVE (NEGATIVE); LEUKOCYTE ESTERASE ,URINE NEGATIVE (NEGATIVE); NITRITE, URINE NEGATIVE (NEGATIVE); PH,URINE 5.5 (5.0-8.0); PROTEIN URINE NEGATIVE (NEGATIVE); UROBILINOGEN,URINE 0.2 (0.2-1.0)
[2022-01-02 16:56] LABS: COLOR,URINE STRAW (YELLOW)
[2022-01-02 16:57] LABS: CLARITY/URINE SLIGHTLY HAZY (CLEAR)
[2022-01-02 17:35] VITALS: BP_SYST 151
== END 2022-01-02 17:35 | disposition home or self-care (01) ==
LOC: SED 11:22
DX: M25.551 Pain in right hip (principal); R68.83 Chills (without fever)
CPT/HCPCS: 36415; 71045; 72192-TC; 73502; 76376; 80053; 81003; 83605; 84484; 85025; 87040; 87086; 99285

== ENCOUNTER 2023-10-29 09:16 | Emergency (ER) | payer OTHER ==
[~2023-10-29] VITALS: Ht 147.3 cm; Wt 61.2 kg
[2023-10-29 09:29] VITALS: BP_SYST 117; PULSE 67; RESP 20; TEMP 97.6; O2SAT 98
[2023-10-29 09:42] LABS: BASOPHILS # (AUTO) 0.1 K/uL (0.0-0.2); BASOPHILS % (AUTO) 0.6 % (0.0-2.0); EOSINOPHILS # (AUTO) 0.3 K/uL (0.0-0.4); EOSINOPHILS % (AUTO) 1.7 % (0.0-4.0); HEMOGLOBIN 13.7 g/dL (12.0-16.0); LYMPHOCYTES # (AUTO) 6.9 K/uL (1.0-5.5); MEAN CORPUSCULAR HEMOGLOBIN 29 pg (27-31); MEAN CORPUSCULAR HGB CONC 33 % (32-36); MEAN CORPUSCULAR VOLUME 88 fL (79.0-98.0); MONOCYTES # (AUTO) 1.2 K/uL (0.0-1.0); MONOCYTES % (AUTO) 7.4 % (1.7-9.3); NEUTROPHILS # (AUTO) 7.6 K/uL (1.8-7.7); NEUTROPHILS % (AUTO) 47.3 % (40.0-70.0); PLATELET COUNT (AUTO) 414 K/uL (130-430); RED BLOOD CELL COUNT(AUTO) 4.65 MIL/uL (4.2-6.2); RED CELL DISTRIBUTION WIDTH 15.1 % (9.0-15.0); WHITE BLOOD COUNT (AUTO) 16.1 K/uL (4.8-10.8)
[2023-10-29 09:55] LABS: ALANINE AMINOTRANSFERASE 56 U/L (12-78); ANION GAP 12 (5-15); ASPARTATE AMINOTRANSFERASE 34 U/L (10-37); BILIRUBIN,DIRECT 0.2 mg/dL (0.0-0.3); CARBON DIOXIDE 25 mmol/L (23-29); CHLORIDE 102 mmol/L (98-107); CREATININE 1.13 mg/dL (0.55-1.30); GLUCOSE 89 mg/dL (74-106); LIPASE 59 U/L (16-77); SODIUM SERUM 139 mmol/L (136-145); TOTAL BILIRUBIN 0.7 mg/dL (0.0-1.0); TOTAL PROTEIN, SERUM 7.7 g/dL (6.4-8.3); UREA NITROGEN, BLOOD 22 mg/dL (8-21)
[2023-10-29 09:57] LABS: POTASSIUM 2.8 mmol/L (3.5-5.1)
[2023-10-29 10:00] LABS: BILIRUBIN,URINE NEGATIVE (NEGATIVE); BLOOD, URINE NEGATIVE (NEGATIVE); COLOR,URINE YELLOW (YELLOW); GLUCOSE,URINE NEGATIVE (NEGATIVE); KETONES,URINE NEGATIVE (NEGATIVE); LEUKOCYTE ESTERASE ,URINE NEGATIVE (NEGATIVE); NITRITE, URINE NEGATIVE (NEGATIVE); PROTEIN URINE NEGATIVE (NEGATIVE); UROBILINOGEN,URINE 0.2 (0.2-1.0)
[2023-10-29 10:03] LABS: CLARITY/URINE HAZY (CLEAR)
[2023-10-29] MEDS: POTASSIUM CHLORIDE 20 MEQ/PKT PACKET PO ONE (10:40)
[2023-10-29] MEDS: KCL 40 mEq in 100 mL (PREMIX) 100 ML IV ONE (10:54)
[2023-10-29 11:11] LABS: ANION GAP 11 (5-15); CALCIUM 8.9 mg/dL (8.4-11.0); CARBON DIOXIDE 26 mmol/L (23-29); CHLORIDE 106 mmol/L (98-107); CREATININE 1.23 mg/dL (0.55-1.30); GLUCOSE 97 mg/dL (74-106); POTASSIUM 3.1 mmol/L (3.5-5.1); SODIUM SERUM 143 mmol/L (136-145); UREA NITROGEN, BLOOD 22 mg/dL (8-21)
[2023-10-29] MEDS ORDERED: ACET-2634 PO (13:57)
[2023-10-29] MEDS ORDERED: POTA-197 PO (14:04)
[2023-10-29 14:42] VITALS: BP_SYST 121; PULSE 55; RESP 18; TEMP 97.8; O2SAT 96
[2023-10-29] MEDS ORDERED: cloNIDine HCL 0.1 MG TABLET PO ONE (14:45)
[2023-10-30] MEDS ORDERED: FAMO20TA8 PO (10:21)
[2023-10-30] MEDS ORDERED: FLUT16SP16 NS (10:21)
== END 2023-10-29 09:28 | disposition home or self-care (01) ==
LOC: SED 09:16
DX: M25.551 Pain in right hip (principal); E87.6 Hypokalemia; I10 Essential (primary) hypertension; Z79.899 Other long term (current) drug therapy
CPT/HCPCS: 99285; 96365; 80076; 80048; 81001; 83690; 85025; 36415; 72170; 81003; J3480

== ENCOUNTER 2023-10-30 06:02 | Inpatient (IN) | payer OTHER ==
[~2023-10-30] VITALS: Ht 147.3 cm; Wt 73.9 kg
[~2023-10-30 06:02] MED LIST changes: +ACET-2634 PO; +POTA-197 PO
[2023-10-30 06:05] VITALS: BP_SYST 126; PULSE 67; RESP 17; TEMP 97.3; O2SAT 99
[2023-10-30 07:46] LABS: BASOPHILS # (AUTO) 0.1 K/uL (0.0-0.2); BASOPHILS % (AUTO) 0.5 % (0.0-2.0); EOSINOPHILS # (AUTO) 0.3 K/uL (0.0-0.4); HEMATOCRIT 39.7 % (36-48); LYMPHOCYTES # (AUTO) 3.3 K/uL (1.0-5.5); LYMPHOCYTES % (AUTO) 22.1 % (20.5-51.5); MEAN CORPUSCULAR HEMOGLOBIN 29 pg (27-31); MEAN CORPUSCULAR HGB CONC 33 % (32-36); MEAN CORPUSCULAR VOLUME 88 fL (79.0-98.0); MONOCYTES # (AUTO) 1.2 K/uL (0.0-1.0); NEUTROPHILS # (AUTO) 10.2 K/uL (1.8-7.7); NEUTROPHILS % (AUTO) 67.4 % (40.0-70.0); PLATELET COUNT (AUTO) 371 K/uL (130-430); RED CELL DISTRIBUTION WIDTH 14.8 % (9.0-15.0); WHITE BLOOD COUNT (AUTO) 15.1 K/uL (4.8-10.8)
[2023-10-30] MEDS: KETOROLAC TROMETHAMINE 15 MG VIAL IVP ONE (07:55)
[2023-10-30 07:56] LABS: ANION GAP 6 (5-15); CALCIUM 9.4 mg/dL (8.4-11.0); CARBON DIOXIDE 29 mmol/L (23-29); CHLORIDE 103 mmol/L (98-107); CREATININE 1.23 mg/dL (0.55-1.30); GLUCOSE 108 mg/dL (74-106); POTASSIUM 3.8 mmol/L (3.5-5.1); SODIUM SERUM 138 mmol/L (136-145); UREA NITROGEN, BLOOD 21 mg/dL (8-21)
[2023-10-30 08:03] LABS: ALANINE AMINOTRANSFERASE 49 U/L (12-78); ALBUMIN 3.6 g/dL (3.4-4.8); ASPARTATE AMINOTRANSFERASE 29 U/L (10-37); BILIRUBIN,DIRECT 0.2 mg/dL (0.0-0.3); PROTHROMBIN TIME 10.5 SECS (9.5-12.5); TOTAL BILIRUBIN 0.6 mg/dL (0.0-1.0); TOTAL PROTEIN, SERUM 6.7 g/dL (6.4-8.3)
[2023-10-30] MEDS: cefTRIAXone 1 GM IVPB PREMIX 50 ML IV ONE (09:18)
[2023-10-30 09:28] LABS: BILIRUBIN,URINE NEGATIVE (NEGATIVE); BLOOD, URINE NEGATIVE (NEGATIVE); CLARITY/URINE CLEAR (CLEAR); COLOR,URINE YELLOW (YELLOW); GLUCOSE,URINE NEGATIVE (NEGATIVE); KETONES,URINE NEGATIVE (NEGATIVE); LEUKOCYTE ESTERASE ,URINE NEGATIVE (NEGATIVE); NITRITE, URINE NEGATIVE (NEGATIVE); PROTEIN URINE NEGATIVE (NEGATIVE); UROBILINOGEN,URINE 0.2 (0.2-1.0)
[2023-10-30] MEDS ORDERED: ACETAMINOPHEN 325 MG TABLET PO PRN ×2 (10:00→10:15)
[2023-10-30] MEDS ORDERED: FLUT16SP16 NS (10:21)
[2023-10-30] MEDS ORDERED: FAMO20TA8 PO (10:21)
[2023-10-30 10:45] VITALS: BP_SYST 125; PULSE 59; RESP 18; TEMP 97.4; O2SAT 95
[2023-10-30] MEDS: HYDROcodone/ACETAMIN 10-325 MG TAB PO PRN (11:48)
[2023-10-30 13:18] VITALS: BP_SYST 122; PULSE 68; RESP 18; TEMP 97.8; O2SAT 93
[2023-10-30] MEDS ORDERED: GADOTERATE MEGLUMINE 7.5 MMOL/15 ML VIAL IV ONE (13:57)
[2023-10-30 16:00] VITALS: BP_SYST 117; PULSE 76; RESP 18; TEMP 98.1
[2023-10-30 20:03] VITALS: BP_SYST 114; PULSE 68; RESP 19; TEMP 97.6; O2SAT 96
[2023-10-31 00:30] VITALS: BP_SYST 105; PULSE 70; RESP 18; TEMP 97.5; O2SAT 94
[2023-10-31 04:16] LABS: BASOPHILS % (AUTO) 0.3 % (0.0-2.0); EOSINOPHILS # (AUTO) 0.9 K/uL (0.0-0.4); EOSINOPHILS % (AUTO) 5.8 % (0.0-4.0); HEMATOCRIT 37.9 % (36-48); HEMOGLOBIN 12.7 g/dL (12.0-16.0); LYMPHOCYTES # (AUTO) 3.2 K/uL (1.0-5.5); LYMPHOCYTES % (AUTO) 21.7 % (20.5-51.5); MEAN CORPUSCULAR HEMOGLOBIN 29 pg (27-31); MEAN CORPUSCULAR HGB CONC 34 % (32-36); MEAN CORPUSCULAR VOLUME 87 fL (79.0-98.0); MONOCYTES # (AUTO) 1.1 K/uL (0.0-1.0); MONOCYTES % (AUTO) 7.7 % (1.7-9.3); NEUTROPHILS # (AUTO) 9.5 K/uL (1.8-7.7); NEUTROPHILS % (AUTO) 64.5 % (40.0-70.0); PLATELET COUNT (AUTO) 362 K/uL (130-430); RED BLOOD CELL COUNT(AUTO) 4.36 MIL/uL (4.2-6.2); RED CELL DISTRIBUTION WIDTH 15.2 % (9.0-15.0); WHITE BLOOD COUNT (AUTO) 14.7 K/uL (4.8-10.8)
[2023-10-31 04:45] LABS: ALANINE AMINOTRANSFERASE 36 U/L (12-78); ANION GAP 7 (5-15); ASPARTATE AMINOTRANSFERASE 55 U/L (10-37); CALCIUM 9.1 mg/dL (8.4-11.0); CARBON DIOXIDE 26 mmol/L (23-29); CHLORIDE 103 mmol/L (98-107); CREATININE 1.11 mg/dL (0.55-1.30); GLUCOSE 110 mg/dL (74-106); POTASSIUM 3.9 mmol/L (3.5-5.1); SODIUM SERUM 136 mmol/L (136-145); TOTAL BILIRUBIN 0.4 mg/dL (0.0-1.0); TOTAL PROTEIN, SERUM 6.5 g/dL (6.4-8.3); UREA NITROGEN, BLOOD 22 mg/dL (8-21)
[2023-10-31 08:15] VITALS: O2SAT 94
[2023-10-31] MEDS: HYDROcodone/ACETAMIN 5-325 MG TAB (NORCO/ VICODIN) PO PRN (10:34)
[2023-10-31 11:40] VITALS: BP_SYST 135; PULSE 69; RESP 17; TEMP 97.2; O2SAT 95
[2023-10-31 17:08] VITALS: BP_SYST 128; PULSE 77; RESP 18; TEMP 98; O2SAT 95
[2023-10-31] MEDS: ASPIRIN 81 MG TABLET(ECOTRIN) PO ONE (17:29)
[2023-10-31] MEDS: NACL 0.9% 1,000 ML IV SCH (17:30)
[2023-10-31] MEDS: LEVOTHYROXINE SODIUM 0.05 MG TABLET PO ONE (17:30)
[2023-10-31 20:30] VITALS: BP_SYST 134; PULSE 87; RESP 18; TEMP 97.2; O2SAT 95
[2023-10-31] MEDS: ATORVASTATIN 20 MG TABLET PO SCH (21:43)
[2023-10-31 22:43] VITALS: O2SAT 95
[2023-11-01] VITALS: BP_SYST 117; PULSE 69; RESP 16; TEMP 97.2; O2SAT 98
[2023-11-01 05:02] LABS: BASOPHILS # (AUTO) 0.1 K/uL (0.0-0.2); BASOPHILS % (AUTO) 0.4 % (0.0-2.0); EOSINOPHILS % (AUTO) 5.6 % (0.0-4.0); HEMOGLOBIN 12.1 g/dL (12.0-16.0); LYMPHOCYTES # (AUTO) 3.5 K/uL (1.0-5.5); LYMPHOCYTES % (AUTO) 20.2 % (20.5-51.5); MEAN CORPUSCULAR HEMOGLOBIN 29 pg (27-31); MEAN CORPUSCULAR HGB CONC 33 % (32-36); MEAN CORPUSCULAR VOLUME 88 fL (79.0-98.0); MONOCYTES # (AUTO) 1.4 K/uL (0.0-1.0); MONOCYTES % (AUTO) 8.1 % (1.7-9.3); NEUTROPHILS # (AUTO) 11.3 K/uL (1.8-7.7); NEUTROPHILS % (AUTO) 65.7 % (40.0-70.0); PLATELET COUNT (AUTO) 296 K/uL (130-430); RED BLOOD CELL COUNT(AUTO) 4.22 MIL/uL (4.2-6.2); RED CELL DISTRIBUTION WIDTH 14.6 % (9.0-15.0); WHITE BLOOD COUNT (AUTO) 17.2 K/uL (4.8-10.8)
[2023-11-01 05:37] LABS: ALANINE AMINOTRANSFERASE 35 U/L (12-78); ALBUMIN 2.7 g/dL (3.4-4.8); ANION GAP 10 (5-15); ASPARTATE AMINOTRANSFERASE 23 U/L (10-37); CALCIUM 8.2 mg/dL (8.4-11.0); CARBON DIOXIDE 23 mmol/L (23-29); CHLORIDE 103 mmol/L (98-107); CREATININE 0.98 mg/dL (0.55-1.30); GLUCOSE 87 mg/dL (74-106); POTASSIUM 3.6 mmol/L (3.5-5.1); SODIUM SERUM 136 mmol/L (136-145); TOTAL BILIRUBIN 0.7 mg/dL (0.0-1.0); TOTAL PROTEIN, SERUM 5.8 g/dL (6.4-8.3); UREA NITROGEN, BLOOD 18 mg/dL (8-21)
[2023-11-01] MEDS: LEVOTHYROXINE SODIUM 0.05 MG TABLET PO SCH (06:18)
[2023-11-01 08:15] VITALS: O2SAT 94
[2023-11-01] MEDS: ASPIRIN 81 MG TABLET(ECOTRIN) PO SCH (08:19)
[2023-11-01 11:54] VITALS: BP_SYST 119; PULSE 78; RESP 19; TEMP 98.4; O2SAT 94
[2023-11-01 16:45] VITALS: BP_SYST 122; PULSE 81; RESP 19; TEMP 98.1; O2SAT 92
[2023-11-01 20:00] VITALS: BP_SYST 120; PULSE 72; RESP 18; TEMP 98.2; O2SAT 96
[2023-11-02 00:12] VITALS: BP_SYST 128; PULSE 69; RESP 18; TEMP 97.7; O2SAT 94
[2023-11-02 04:39] LABS: BASOPHILS # (AUTO) 0.1 K/uL (0.0-0.2); BASOPHILS % (AUTO) 0.9 % (0.0-2.0); EOSINOPHILS # (AUTO) 0.9 K/uL (0.0-0.4); EOSINOPHILS % (AUTO) 6.4 % (0.0-4.0); HEMATOCRIT 35.6 % (36-48); HEMOGLOBIN 11.8 g/dL (12.0-16.0); LYMPHOCYTES # (AUTO) 3.1 K/uL (1.0-5.5); LYMPHOCYTES % (AUTO) 21.2 % (20.5-51.5); MEAN CORPUSCULAR HEMOGLOBIN 29 pg (27-31); MEAN CORPUSCULAR HGB CONC 33 % (32-36); MEAN CORPUSCULAR VOLUME 88 fL (79.0-98.0); MONOCYTES # (AUTO) 1.3 K/uL (0.0-1.0); MONOCYTES % (AUTO) 8.9 % (1.7-9.3); NEUTROPHILS % (AUTO) 62.6 % (40.0-70.0); PLATELET COUNT (AUTO) 265 K/uL (130-430); RED BLOOD CELL COUNT(AUTO) 4.05 MIL/uL (4.2-6.2); RED CELL DISTRIBUTION WIDTH 14.8 % (9.0-15.0); WHITE BLOOD COUNT (AUTO) 14.5 K/uL (4.8-10.8)
[2023-11-02 05:45] LABS: ALANINE AMINOTRANSFERASE 35 U/L (12-78); ALBUMIN 2.7 g/dL (3.4-4.8); ANION GAP 12 (5-15); ASPARTATE AMINOTRANSFERASE 29 U/L (10-37); CALCIUM 8.2 mg/dL (8.4-11.0); CARBON DIOXIDE 22 mmol/L (23-29); CHLORIDE 108 mmol/L (98-107); CREATININE 0.88 mg/dL (0.55-1.30); GLUCOSE 82 mg/dL (74-106); POTASSIUM 3.4 mmol/L (3.5-5.1); SODIUM SERUM 142 mmol/L (136-145); TOTAL BILIRUBIN 0.7 mg/dL (0.0-1.0); TOTAL PROTEIN, SERUM 6.1 g/dL (6.4-8.3); UREA NITROGEN, BLOOD 13 mg/dL (8-21)
[2023-11-02 08:15] VITALS: BP_SYST 134; PULSE 73; RESP 20; TEMP 98.6; O2SAT 95
[2023-11-02 08:47] VITALS: O2SAT 95
[2023-11-02] MEDS: POTASSIUM CHLORIDE 20 MEQ TABLET.ER PO ONE (11:50)
[2023-11-02] MEDS: CEFEPIME 2 GM in D5W 100 ML IV ONE (11:51)
[2023-11-02 12:26] VITALS: BP_SYST 141; PULSE 70; RESP 18; TEMP 98.1; O2SAT 96
[2023-11-02] MEDS: DEXAMETHASONE SOD PHOSPHATE 10 MG/ML VIAL IVP ONE (15:03)
[2023-11-02 16:23] VITALS: BP_SYST 138; PULSE 71; RESP 18; TEMP 99.2; O2SAT 95
[2023-11-02] MEDS: VANCOMYCIN HCL 750 MG in NS 250 ML IV SCH (17:28)
[2023-11-02 20:05] VITALS: BP_SYST 129; PULSE 73; RESP 18; TEMP 97.9; O2SAT 93
[2023-11-03 01:20] VITALS: BP_SYST 138; PULSE 78; RESP 18; TEMP 97.9; O2SAT 97
[2023-11-03] MEDS ORDERED: CLIN-22 PO (03:35)
[2023-11-03] MEDS ORDERED: LEVO250T73 PO (03:35)
[2023-11-03 05:32] LABS: BASOPHILS # (AUTO) 0.1 K/uL (0.0-0.2); BASOPHILS % (AUTO) 0.5 % (0.0-2.0); EOSINOPHILS % (AUTO) 0.1 % (0.0-4.0); HEMOGLOBIN 11.8 g/dL (12.0-16.0); LYMPHOCYTES # (AUTO) 1.3 K/uL (1.0-5.5); LYMPHOCYTES % (AUTO) 12.1 % (20.5-51.5); MEAN CORPUSCULAR HEMOGLOBIN 29 pg (27-31); MEAN CORPUSCULAR HGB CONC 34 % (32-36); MEAN CORPUSCULAR VOLUME 87 fL (79.0-98.0); MONOCYTES # (AUTO) 0.1 K/uL (0.0-1.0); NEUTROPHILS # (AUTO) 9.2 K/uL (1.8-7.7); NEUTROPHILS % (AUTO) 86.3 % (40.0-70.0); PLATELET COUNT (AUTO) 248 K/uL (130-430); RED BLOOD CELL COUNT(AUTO) 4.01 MIL/uL (4.2-6.2); RED CELL DISTRIBUTION WIDTH 14.5 % (9.0-15.0); WHITE BLOOD COUNT (AUTO) 10.7 K/uL (4.8-10.8)
[2023-11-03 06:14] LABS: ALANINE AMINOTRANSFERASE 38 U/L (12-78); ALBUMIN 2.8 g/dL (3.4-4.8); ANION GAP 11 (5-15); ASPARTATE AMINOTRANSFERASE 27 U/L (10-37); CALCIUM 8.2 mg/dL (8.4-11.0); CARBON DIOXIDE 20 mmol/L (23-29); CHLORIDE 109 mmol/L (98-107); GLUCOSE 147 mg/dL (74-106); POTASSIUM 3.8 mmol/L (3.5-5.1); SODIUM SERUM 140 mmol/L (136-145); TOTAL BILIRUBIN 0.5 mg/dL (0.0-1.0); TOTAL PROTEIN, SERUM 6.2 g/dL (6.4-8.3); UREA NITROGEN, BLOOD 17 mg/dL (8-21)
[2023-11-03 08:15] VITALS: BP_SYST 153; PULSE 69; RESP 18; TEMP 97.6; O2SAT 95
[2023-11-03] MEDS: DEXAMETHASONE SOD PHOSPHATE 10 MG/ML VIAL IVP SCH (09:38)
[2023-11-03] MEDS: CEFEPIME 2 GM in D5W 100 ML IV SCH (09:38)
[2023-11-03 09:59] VITALS: O2SAT 95
[2023-11-03] MEDS: ONDANSETRON HCL 4 MG/2 ML VIAL IVP PRN (11:19)
[2023-11-03 11:50] VITALS: BP_SYST 148; PULSE 84; RESP 18; TEMP 97.6; O2SAT 97
[2023-11-03] MEDS: MAG-AL HYDROX/SIMETH 30 ML UDC PO PRN (17:16)
[2023-11-03 17:23] VITALS: BP_SYST 148; PULSE 90; RESP 17; TEMP 98.6; O2SAT 95
[2023-11-03 21:19] VITALS: BP_SYST 134; PULSE 66; RESP 16; TEMP 98.8; O2SAT 93
[2023-11-04] VITALS: BP_SYST 129; PULSE 72; RESP 17; TEMP 97.1; O2SAT 96
[2023-11-04 06:27] VITALS: PULSE 74; RESP 18; O2SAT 95
[2023-11-04 07:27] LABS: ANION GAP 9 (5-15); CALCIUM 8.7 mg/dL (8.4-11.0); CARBON DIOXIDE 24 mmol/L (23-29); CHLORIDE 106 mmol/L (98-107); CREATININE 0.85 mg/dL (0.55-1.30); GLUCOSE 130 mg/dL (74-106); POTASSIUM 3.8 mmol/L (3.5-5.1); SODIUM SERUM 139 mmol/L (136-145); UREA NITROGEN, BLOOD 21 mg/dL (8-21)
[2023-11-04 07:28] LABS: BASOPHILS % (AUTO) 0.2 % (0.0-2.0); HEMATOCRIT 34.3 % (36-48); HEMOGLOBIN 11.2 g/dL (12.0-16.0); LYMPHOCYTES # (AUTO) 1.8 K/uL (1.0-5.5); LYMPHOCYTES % (AUTO) 9.7 % (20.5-51.5); MEAN CORPUSCULAR HEMOGLOBIN 29 pg (27-31); MEAN CORPUSCULAR HGB CONC 33 % (32-36); MEAN CORPUSCULAR VOLUME 88 fL (79.0-98.0); MONOCYTES # (AUTO) 0.6 K/uL (0.0-1.0); MONOCYTES % (AUTO) 3.1 % (1.7-9.3); PLATELET COUNT (AUTO) 254 K/uL (130-430); RED BLOOD CELL COUNT(AUTO) 3.89 MIL/uL (4.2-6.2); RED CELL DISTRIBUTION WIDTH 14.9 % (9.0-15.0)
[2023-11-04 07:35] LABS: WHITE BLOOD COUNT (AUTO) 18.4 K/uL (4.8-10.8)
[2023-11-04 07:45] VITALS: BP_SYST 130; PULSE 58; RESP 18; TEMP 97.7; O2SAT 99
[2023-11-04 07:51] LABS: ERYTHROCYTE SEDIMENTATION RATE 14 MM/HR (0-20)
[2023-11-04 11:46] VITALS: BP_SYST 130; PULSE 55; RESP 18; TEMP 97.7; O2SAT 94
[2023-11-04 16:54] VITALS: BP_SYST 132; PULSE 68; RESP 17; TEMP 97.9; O2SAT 94
[2023-11-04 20:20] VITALS: BP_SYST 144; PULSE 69; RESP 18; TEMP 97.6; O2SAT 94
[2023-11-05 00:18] VITALS: BP_SYST 145; PULSE 59; RESP 18; TEMP 96.8; O2SAT 94
[2023-11-05 05:35] LABS: BASOPHILS % (AUTO) 0.1 % (0.0-2.0); HEMATOCRIT 32.5 % (36-48); HEMOGLOBIN 10.9 g/dL (12.0-16.0); LYMPHOCYTES # (AUTO) 1.3 K/uL (1.0-5.5); LYMPHOCYTES % (AUTO) 8.8 % (20.5-51.5); MEAN CORPUSCULAR HEMOGLOBIN 29 pg (27-31); MEAN CORPUSCULAR HGB CONC 33 % (32-36); MEAN CORPUSCULAR VOLUME 87 fL (79.0-98.0); MONOCYTES # (AUTO) 0.5 K/uL (0.0-1.0); MONOCYTES % (AUTO) 3.6 % (1.7-9.3); NEUTROPHILS # (AUTO) 13.4 K/uL (1.8-7.7); NEUTROPHILS % (AUTO) 87.5 % (40.0-70.0); PLATELET COUNT (AUTO) 267 K/uL (130-430); RED BLOOD CELL COUNT(AUTO) 3.72 MIL/uL (4.2-6.2); RED CELL DISTRIBUTION WIDTH 14.7 % (9.0-15.0); WHITE BLOOD COUNT (AUTO) 15.3 K/uL (4.8-10.8)
[2023-11-05 05:39] LABS: ERYTHROCYTE SEDIMENTATION RATE 9 MM/HR (0-20)
[2023-11-05 07:03] LABS: ALANINE AMINOTRANSFERASE 35 U/L (12-78); ALBUMIN 2.8 g/dL (3.4-4.8); ANION GAP 11 (5-15); ASPARTATE AMINOTRANSFERASE 20 U/L (10-37); CALCIUM 8.1 mg/dL (8.4-11.0); CARBON DIOXIDE 25 mmol/L (23-29); CHLORIDE 104 mmol/L (98-107); CREATININE 0.87 mg/dL (0.55-1.30); GLUCOSE 133 mg/dL (74-106); POTASSIUM 3.9 mmol/L (3.5-5.1); SODIUM SERUM 140 mmol/L (136-145); TOTAL BILIRUBIN 0.4 mg/dL (0.0-1.0); TOTAL PROTEIN, SERUM 5.9 g/dL (6.4-8.3); UREA NITROGEN, BLOOD 28 mg/dL (8-21)
[2023-11-05 08:00] VITALS: BP_SYST 135; PULSE 62; RESP 16; TEMP 97.9; O2SAT 95
[2023-11-05 08:27] VITALS: O2SAT 97
[2023-11-05 11:29] VITALS: BP_SYST 113; PULSE 61; RESP 16; TEMP 96.7; O2SAT 94
[2023-11-05 15:28] VITALS: BP_SYST 130; PULSE 74; RESP 18; TEMP 96.2; O2SAT 93
[2023-11-05 20:47] VITALS: BP_SYST 133; PULSE 55; RESP 18; TEMP 98.8; O2SAT 93
[2023-11-06 00:25] VITALS: BP_SYST 146; PULSE 59; RESP 16; TEMP 97.5; O2SAT 96
[2023-11-06 06:24] LABS: HEMATOCRIT 31.8 % (36-48); HEMOGLOBIN 10.7 g/dL (12.0-16.0); LYMPHOCYTES # (AUTO) 2.2 K/uL (1.0-5.5); LYMPHOCYTES % (AUTO) 12.3 % (20.5-51.5); MEAN CORPUSCULAR HEMOGLOBIN 29 pg (27-31); MEAN CORPUSCULAR HGB CONC 34 % (32-36); MEAN CORPUSCULAR VOLUME 87 fL (79.0-98.0); MONOCYTES # (AUTO) 1.2 K/uL (0.0-1.0); MONOCYTES % (AUTO) 6.7 % (1.7-9.3); NEUTROPHILS # (AUTO) 14.5 K/uL (1.8-7.7); PLATELET COUNT (AUTO) 264 K/uL (130-430); RED BLOOD CELL COUNT(AUTO) 3.66 MIL/uL (4.2-6.2); RED CELL DISTRIBUTION WIDTH 14.6 % (9.0-15.0); WHITE BLOOD COUNT (AUTO) 17.9 K/uL (4.8-10.8)
[2023-11-06 06:41] LABS: ANION GAP 5 (5-15); CALCIUM 8.5 mg/dL (8.4-11.0); CARBON DIOXIDE 27 mmol/L (23-29); CHLORIDE 103 mmol/L (98-107); CREATININE 0.88 mg/dL (0.55-1.30); GLUCOSE 104 mg/dL (74-106); POTASSIUM 3.8 mmol/L (3.5-5.1); SODIUM SERUM 135 mmol/L (136-145); UREA NITROGEN, BLOOD 30 mg/dL (8-21)
[2023-11-06 08:00] VITALS: BP_SYST 132; PULSE 61; RESP 16; TEMP 97.9; O2SAT 95
[2023-11-06] MEDS ORDERED: DEC4 PO (11:41)
[2023-11-06 15:50] VITALS: BP_SYST 133; PULSE 62; RESP 16; TEMP 97.8; O2SAT 96
== END 2023-11-06 16:30 | DRG 98 ==
LOC: SED 06:02 → SMU 10:00
PROVIDERS: ADMIT Family Medicine; ATTEND Family Medicine
DX: G37.3 Acute transverse myelitis in demyelinating disease of central nervous system (principal); E87.20 Acidosis, unspecified; M47.26 Other spondylosis with radiculopathy, lumbar region; I10 Essential (primary) hypertension; E78.5 Hyperlipidemia, unspecified; E03.9 Hypothyroidism, unspecified; D64.9 Anemia, unspecified; R73.9 Hyperglycemia, unspecified; M48.061 Spinal stenosis, lumbar region without neurogenic claudication; E88.09 Other disorders of plasma-protein metabolism, not elsewhere classified; Z79.899 Other long term (current) drug therapy; Z68.34 Body mass index [BMI] 34.0-34.9, adult; M48.00 Spinal stenosis, site unspecified; E86.0 Dehydration; M41.9 Scoliosis, unspecified
CPT/HCPCS: 36415; 71045; 72100; 72156; 72157; 72158; 80048; 80053; 80076; 81001; 81003; 82085; 82550; 83037; 83605; 84443; 84484; 85025; 85610; 85651; 85730; 87040; 87086; 93005; 96365; 96375; 97110-GP; 97112-GP; 97530-GP; 99285; A9575; J0692; J1100; J1885; J2405; J7050; J7060